=== PATIENT | female | born 1985 | race Caucasian/White ===

== ENCOUNTER 2020-01-25 13:23 | Outpatient (REF) | payer BC, SELFPAY ==
[2020-01-25 14:02] LABS: MANUAL DIFF FLAG NO
[2020-01-25 14:10] LABS: Basophils Absolute Auto 0.1 X10*3/uL (0.0-0.2); Basophils Percent Auto 1.1 % (0-2); Eosinophils Absolute Auto 0.2 X10*3/uL (0.0-0.4); Eosinophils Percent Auto 1.8 % (0-4); Hematocrit 39.5 % (37-47); Hemoglobin 12.5 g/dl (12.0-16.0); Imm Gran Abs Auto 0.02 X10*3/uL (0.00-0.03); Imm Gran Pct Auto 0.2 % (0.0-0.4); Lymphocytes Absolute Auto 2.3 X10*3/uL (1.2-4.9); Mean Corpuscular HGB Conc 31.6 g/dl (31.0-35.0); Mean Corpuscular Hemoglobin 30.3 pg (27.0-33.0); Mean Corpuscular Volume 95.6 fL (80-98); Mean Platelet Volume 10.3 fL (9.4-12.3); Monocytes Absolute Auto 0.4 X10*3/uL (0.1-1.2); Neutrophils Absolute Auto 5.3 X10*3/uL (2.0-8.3); Neutrophils Percent Auto 63.9 % (45-73); Platelet Count 326 X10*3/uL (160-400); Red Blood Count 4.13 X10*6/uL (4.20-5.50); White Blood Count 8.3 X10*3/uL (4.8-10.8)
[2020-01-25 14:40] LABS: Albumin Level 4.4 g/dL (3.5-5.0); Anion Gap 13 (12-20); Aspartate Amino Transferase 9 U/L (5-31); Bilirubin Total 0.3 mg/dL (0.0-1.0); Blood Urea Nitrogen 13 mg/dL (9-16); Calcium 9.4 mg/dL (8.4-10.2); Carbon Dioxide 24 mmol/L (22-29); Chloride 106 mmol/L (96-108); Cholesterol 245 mg/dL; Estimated Glomerular Filt Rate > 60; Glucose Fasting 85 mg/dL (60-99); HDL Cholesterol 84 mg/dL; LDL Cholesterol Calculated 142 mg/dl; Potassium 4.1 mmol/l (3.3-5.1); Sodium 139 mmol/L (135-145); Total Protein 7.3 g/dL (6.5-8.0); Triglycerides 99 mg/dL
[2020-01-25 15:04] LABS: Thyroid Stimulating Hormone 3.23 mIU/mL (0.32-4.0); Vitamin D 25-OH Total 29.7 ng/mL (>30)
[2020-01-25 15:10] LABS: Folate 17.2 ng/mL (> or = 4.0); Vitamin B12 537 pg/mL (200-900)
[2020-01-25 15:35] LABS: T4 Thyroxine 10.8 ug/dL (4.5-12.0)
[2020-01-25 18:35] LABS: Alanine Aminotransferase 15 U/L (0-31); Alkaline Phosphatase 74 U/L (39-117); Bilirubin Direct < 0.2 mg/dL (0.0-0.5)
== END 2020-01-25 13:24 | disposition home or self-care (01) ==
LOC: HO.LAB 13:23
PROVIDERS: PCP Internal Medicine; Visit Provider Internal Medicine
DX: C20 Malignant neoplasm of rectum (principal); E03.9 Hypothyroidism, unspecified; F41.8 Other specified anxiety disorders; F90.9 Attention-deficit hyperactivity disorder, unspecified type; Z79.899 Other long term (current) drug therapy
CPT/HCPCS: 36415; 80053; 80061; 80076; 82306; 82607; 82746; 84436; 84443; 85025

== ENCOUNTER 2021-10-26 12:36 | Outpatient (REF) | payer BC, SELFPAY ==
[2021-10-26 19:22] LABS: CT PCR NOT DETECTED (Not Detect.); NG PCR NOT DETECTED (Not Detect.)
[2021-10-27 09:49] LABS: BV Int Neg Control Negative (Negative); BV Int Pos Control Positive (Positive)
== END 2021-10-26 12:37 | disposition home or self-care (01) ==
LOC: HO.LAB 12:36
PROVIDERS: Visit Provider Advanced Practice Midwife
DX: Z11.3 Encounter for screening for infections with a predominantly sexual mode of transmission (principal); Z11.8 Encounter for screening for other infectious and parasitic diseases
CPT/HCPCS: 87480; 87491; 87510; 87591; 87660

== ENCOUNTER 2022-02-22 11:13 | Outpatient (REF) | payer BC, SELFPAY ==
[2022-02-22 13:41] LABS: MANUAL DIFF FLAG NO
[2022-02-22 13:43] LABS: Basophils Absolute Auto 0.1 X10*3/uL (0.0-0.2); Basophils Percent Auto 0.9 % (0-2); Eosinophils Absolute Auto 0.4 X10*3/uL (0.0-0.4); Eosinophils Percent Auto 5.1 % (0-4); Hematocrit 39.6 % (37.0-47.0); Hemoglobin 12.5 g/dl (12.0-16.0); Imm Gran Abs Auto 0.02 X10*3/uL (0.00-0.03); Imm Gran Pct Auto 0.2 % (0.0-0.4); Lymphocytes Absolute Auto 2.2 X10*3/uL (1.2-4.9); Lymphocytes Percent Auto 25.9 % (20-40); Mean Corpuscular HGB Conc 31.6 g/dl (31.0-35.0); Mean Corpuscular Hemoglobin 28.9 pg (27.0-33.0); Mean Corpuscular Volume 91.5 fL (80.0-98.0); Mean Platelet Volume 10.8 fL (9.4-12.3); Monocytes Absolute Auto 0.5 X10*3/uL (0.1-1.2); Monocytes Percent Auto 5.3 % (2-11); Neutrophils Absolute Auto 5.3 x10*3/uL (2.0-8.3); Neutrophils Percent Auto 62.6 % (45-73); Platelet Count 342 X10*3/uL (160-400); Red Blood Count 4.33 X10*6/uL (4.20-5.50); Red Cell Distribution Width 14.4 % (11.0-16.0); White Blood Count 8.5 X10*3/uL (4.8-10.8)
[2022-02-22 14:06] LABS: Alanine Aminotransferase 20 U/L (0-31); Albumin Level 4.3 g/dL (3.5-5.0); Alkaline Phosphatase 90 U/L (39-117); Anion Gap 15 (12-20); Aspartate Amino Transferase 15 U/L (5-31); Bilirubin Total 0.4 mg/dL (0.0-1.0); Blood Urea Nitrogen 11 mg/dL (9-16); Calcium 9.5 mg/dL (8.4-10.2); Carbon Dioxide 23 mmol/L (22-29); Chloride 107 mmol/L (96-108); Cholesterol 196 mg/dL; Estimated Glomerular Filt Rate > 60; Glucose Random 83 mg/dL (60-115); HDL Cholesterol 49 mg/dL; LDL Cholesterol Calculated 130 mg/dl; Potassium 4.6 mmol/L (3.3-5.1); Sodium 140 mmol/L (135-145); Triglycerides 88 mg/dL
[2022-02-22 14:15] LABS: Free T4 (Free Thyroxine) 0.85 ng/dL (0.71-1.85); Thyroid Stimulating Hormone 2.34 uIU/mL (0.32-4.0); Vitamin D 25-OH Total 15.6 ng/mL (>30)
[2022-02-22 14:25] LABS: Vitamin B12 403 pg/mL (200-900)
[2022-02-22 15:16] LABS: Folate 18.1 ng/mL (> or = 4.0)
== END 2022-02-22 11:14 | disposition home or self-care (01) ==
LOC: HO.10HDL 11:13
PROVIDERS: Visit Provider Internal Medicine
DX: E78.00 Pure hypercholesterolemia, unspecified (principal); E03.9 Hypothyroidism, unspecified
CPT/HCPCS: 36415; 80053; 80061; 82306; 82607; 82746; 84439; 84443; 85025

== ENCOUNTER 2022-10-04 13:44 | Outpatient (REF) | payer BC, SELFPAY ==
[2022-10-04 15:13] LABS: Free T4 (Free Thyroxine) 0.92 ng/dL (0.71-1.85); Thyroid Stimulating Hormone 3.23 uIU/mL (0.32-4.0)
== END 2022-10-04 13:45 | disposition home or self-care (01) ==
LOC: HO.LAB 13:44
PROVIDERS: Absent Provider Nurse Practitioner Family; PCP Internal Medicine; Visit Provider Internal Medicine
DX: E03.9 Hypothyroidism, unspecified (principal)
CPT/HCPCS: 36415; 84439; 84443

== ENCOUNTER 2023-03-11 10:59 | Outpatient (AMB) | payer BC, SELFPAY ==
--- NOTE | 2023-03-11 11:00 | MHC.PC.OV ---
Vital Signs 03/11/23 11:01 Height 5 ft 5 in Weight 249 lb 0.2 oz BMI 41.4 BP 112/86 Blood Pressure Location Lt brachial Position Sitting Pulse 87 Pulse Source Pulse Oximeter Pulse Oximetry (%) 96 Oxygen Delivery Method Room Air Intake Visit Reasons: Annual PE Intake Note: Patient is here today for a physical. Immunologist Required: No Allergies buckwheat Allergy (Unknown, Verified 03/11/23 11:11) Unknown Medication List - Last Reconciled 03/11/23 by Afia Heard MD [BERberine PO .QD] cholecalciferol (vitamin D3) 50 mcg PO DAILY clotrimazole 1% 1 appl topical BID 4 weeks dextroamphetamine-amphetamine 20 mg (Adderall) 20 mg PO BID levothyroxine 50 mcg PO QAM lorazepam (Ativan) 1 mg PO DAILY PRN multivitamin 1 tab PO DAILY quetiapine (Seroquel) 25 mg PO DAILY PRN trazodone 400 mg PO BEDTIME Tobacco use date assessed: 03/11/23 Dental Screening Dental Screen Date: 03/11/23 Did you have a dental visit in the last 12 months?: No Did you have a dental problem in the last 6 months where you did not have access to dental care?: No HPI Annual PE HPI Details 37-year-old obese female with a history of ADHD hypothyroidism and generalized anxiety disorder last seen in August 2022 patient is here for annual physical. [facility] Medical History (Updated 03/11/23 @ 12:00 by Afia Heard MD) Morbid obesity with BMI of 45.0-49.9, adult ADHD Generalized anxiety disorder Hypothyroidism Surgical History Nasal septal deviation Family History (Updated 03/11/23 @ 12:06 by Afia Heard MD) Mother No problems noted. Father Skin cancer Sister No problems noted. Brother No problems noted. Maternal Grandmother History of breast cancer Paternal Grandmother Colon cancer Skin cancer Paternal Aunt Skin cancer Paternal Uncle Skin cancer Social History Housing: House Alcohol intake: never Patient Tobacco Use Status: Former Tobacco user Tobacco use type: Cigarette e-Cigarette/Vaping Use: Never Used Second Hand Smoke Exposure: No Current occupational status: unemployed Sexual orientation: Straight/Heterosexual Gender identity: Female Cognitive needs: No Hearing needs: No Vision needs: No Questionnaire PHQ-9 Over the last 2 weeks, how often have you been bothered by any of the following problems? 1. Little interest or pleasure in doing things: not at all 2. Feeling down, depressed, or hopeless: not at all 3. Trouble falling or staying asleep, or sleeping too much: not at all 4. Feeling tired or having little energy: not at all 5. Poor appetite or overeating: not at all 6. Feeling bad about yourself - or that you are a failure or have let yourself or your family down: not at all 7. Trouble concentrating on things, such as reading the newspaper or watching television: not at all 8. Moving or speaking so slowly that other people could have noticed. Or the opposite - being so fidgety or restless that you have been moving around a lot more than usual: not at all 9. Thoughts that you would be better off or of hurting yourself in some way: not at all Total score: 0 Depression Screening Interpretation: Negative Depression Screening Done: Yes Source: Developed by Drs. Bebeto Reno, Melba Escobar, Prem Myles and colleagues, with an educational abebe from [employer]. Thrive Questionnaire Date Thrive assessed: 03/07/22 AUDIT C Alcohol Use Questionnaire (AUDIT-C) 1. How often do you have a drink containing alcohol?: Never 2. How many drinks containing alcohol do you have on a typical day when you are drinking?: 1 or 2 3. How often do you have six or more drinks on one occasion?: Never Total Score: 0 Score Reviewed/Action Taken: No BARB-7 AMB Questionnaire BARB-7 Date BARB - 7 assessed: 03/11/23 Feeling nervous, anxious, or on edge: 0 = Not at all Not being able to stop or control worryin = Not at all Worrying too much about different things: 0 = Not at all Trouble relaxin = Not at all Being so restless that it is hard to sit still: 0 = Not at all Becoming easily annoyed or irritable: 0 = Not at all Feeling afraid as if something awful might happen: 0 = Not at all Total BARB-7 score (0-4 normal; 5-9 mild; 10-14 moderate; 15-21 severe): 0 Source: Developed by Drs. Bebeto Reno, Melba Escobar, Prem Myles and colleagues, with an educational abebe from [employer]. Review of Systems Const Denies poor appetite and Denies weakness Eyes Denies no additional complaints ENT Reports Normal hearing present, Denies dizziness, Denies nasal congestion, Denies tinnitus and Denies sore throat Card Denies chest pain, Denies syncope, Denies rapid heart rate and Denies dyspnea Resp Denies cough and Denies dyspnea GI Denies change in stool character, Reports constipation, Denies diarrhea, Denies nausea and Denies vomiting Denies urinary frequency, Denies difficulty voiding and Denies dysuria Neuro Reports Normal hearing present, Denies confusion, Denies dizziness, Denies syncope and Denies weakness Psych Denies confusion Physical exam (Primary Care) Vital Signs: Last Vital Signs Pulse 87 03/11/23 11:01 BP 112/86 03/11/23 11:01 Pulse Ox 96 03/11/23 11:01 Oxygen Delivery Method Room Air 03/11/23 11:01 BMI result Body Mass Index 41.4 Tobacco/Smoking Status: Tobacco use Status Tobacco use date assessed 03/11/23 03/11/23 11:01 Patient Tobacco Use Status Former Tobacco user 03/11/23 11:01 Tobacco use type Cigarette 03/11/23 11:01 e-Cigarette/Vaping Use Never Used 03/11/23 11:01 PHQ-9: PHQ-9 Score PHQ-9: Total score 0 03/11/23 11:13 Depression Screening Interpretation: Negative Thrive Assessment: Date of Thrive Assessment Date Thrive assessed 03/07/22 03/11/23 11:01 Const General: alert and awake; No confusion Orientation/consciousness: No confusion HENMT Head: Yes normocephalic Ears: external ears normal and TM's normal bilaterally Face and sinus: Yes normal facial exam Mouth: moist mucous membranes Throat: Yes tonsils normal Eyes Conjunctivae: conjunctivae normal Pupils: Equal, round and reactive pupils present and Pupil accommodation reflex normal Direct Ophthalmoscopy: normal light reflex Neck Neck: No lymphadenopathy Thyroid: Thyroid normal Chest Chest palpation & inspection: normal inspection of the chest Resp Effort & Inspection: normal respiratory effort and no audible wheezes Auscultation: clear to auscultation bilaterally, no crackles, no wheezes and lung sounds not diminished Cardio Rate: regular rate Rhythm: regular rhythm Peripheral pulses: radial pulses present and dorsalis pedis present GI Palpation (GI): no masses Auscultation: normal bowel sounds and normoactive bowel sounds Rectal Exam - Female: deferred Skin General skin exam: no rashes or lesions noted Rashes: no rashes Neuro General: deep tendon reflexes 2+ bilaterally and No confusion Cranial nerves: Yes Equal, round and reactive pupils present, Yes Midline tongue present, Yes Normal hearing present and Yes Ability to bilaterally elevate shoulders present Cognition (Neuro): normal cognition Gait exam (Neuro): Normal gait present Motor exam (neuro): 5/5 motor strength present throughout Deep tendon reflexes (DTR's): Right brachioradialis reflex intensity grade: 2+, Left brachioradialis reflex intensity grade: 2+, Right patellar reflex intensity grade: 2+ and Left patellar reflex intensity grade: 2+ Extrem General: No edema Office Procedures Flu Questionnaire Does the patient have a severe egg allergy?: No Does the patient have severe life threatening allergies?: No Does the patient have a fever or illness today?: No Has the patient ever had Guillain-Houghton Syndrome?: No Has the patient ever had any past reaction to a flu shot?: No Immunizations flu vacc [id number] 6mos up(PF) 60 mcg(15 mcgx4)/0.5 mL IM syringe Performing Provider: Afia Heard MD Performing Location: [facility] Administered by: EREN Mott on 03/11/23 11:18 Dose Route Admin Location Dispensed Lot Number Expiration Date NDC [employer] 0.5 mL IM Left Deltoid 0.5 mL [id number] 10/20/23 [id number] [employer] VIS Given Date VIS Provided VIS Publication Date 03/11/23 Single Vaccine 20 Eligibility Eligibility Date Funding Source Not [facility] Eligible 03/11/23 Private Assessment and Plan Assessment & Plan (1) Annual physical exam: Code(s): Z00.00 - Encounter for general adult medical examination without abnormal findings (2) ADHD: Code(s): F90.9 - Attention-deficit hyperactivity disorder, unspecified type Plan: Continue with present medication and counseling (3) Hypothyroidism: Code(s): E03.9 - Hypothyroidism, unspecified Plan: Continue with thyroid medication requested blood work (4) Generalized anxiety disorder: Comment: PTSD, therapist Q weekand psychiatrist Dr. Neno ANN once a month Code(s): F41.1 - Generalized anxiety disorder Plan: Continue with counseling and therapy (5) Obesity: Code(s): E66.9 - Obesity, unspecified Plan: Diet and exercise noted weight loss. Orders: Orders Complete Blood Count Auto Diff Today E03.9 - Hypothyroidism, unspecified Comprehensive Met. Panel Today E03.9 - Hypothyroidism, unspecified Free T4 (Free Thyroxine) Today E03.9 - Hypothyroidism, unspecified Thyroid Stimulating Hormone Today E03.9 - Hypothyroidism, unspecified Lipid Panel Today E03.9 - Hypothyroidism, unspecified, E78.00 - Pure hypercholesterolemia, unspecified Vitamin B12 and Folate Today E03.9 - Hypothyroidism, unspecified Vitamin D 25-OH Total Today E03.9 - Hypothyroidism, unspecified Influenza [id number] Immunization Today Z23 - Encounter for immunization Coding Level of Care Code Est Pt Prev Care [id number]) Diagnoses Annual physical exam Z00.00 ADHD F90.9 Hypothyroidism E03.9 Generalized anxiety disorder F41.1 Obesity E66.9
[2023-03-11 11:01] VITALS: BP 112/86; PULSE 87; O2SAT 96; BMI 41.4
== END 2023-03-11 12:16 | disposition home or self-care (01) ==
PROVIDERS: Visit Provider Internal Medicine
DX: Z00.00 Encounter for general adult medical examination without abnormal findings (principal); E66.9 Obesity, unspecified; Z68.41 Body mass index [BMI] 40.0-44.9, adult; Z23 Encounter for immunization; F90.9 Attention-deficit hyperactivity disorder, unspecified type; E03.9 Hypothyroidism, unspecified; F41.1 Generalized anxiety disorder
CPT/HCPCS: 90471; 90686; 99395

== ENCOUNTER 2023-07-22 16:34 | Outpatient (REF) | payer BC, SELFPAY ==
[2023-07-22 16:52] LABS: MANUAL DIFF FLAG NO
[2023-07-22 17:59] LABS: Basophils Absolute Auto 0.1 X10*3/uL (0.0-0.2); Eosinophils Absolute Auto 0.2 X10*3/uL (0.0-0.4); Eosinophils Percent Auto 2.2 % (0-4); Hematocrit 41.8 % (37.0-47.0); Hemoglobin 13.5 g/dl (12.0-16.0); Imm Gran Abs Auto 0.01 X10*3/uL (0.00-0.03); Imm Gran Pct Auto 0.1 % (0.0-0.4); Lymphocytes Absolute Auto 2.2 X10*3/uL (1.2-4.9); Lymphocytes Percent Auto 25.3 % (20-40); Mean Corpuscular HGB Conc 32.3 g/dl (31.0-35.0); Mean Corpuscular Hemoglobin 29.1 pg (27.0-33.0); Mean Corpuscular Volume 90.1 fL (80.0-98.0); Mean Platelet Volume 10.5 fL (9.4-12.3); Monocytes Absolute Auto 0.5 X10*3/uL (0.1-1.2); Monocytes Percent Auto 5.3 % (2-11); Neutrophils Absolute Auto 5.8 x10*3/uL (2.0-8.3); Neutrophils Percent Auto 66.1 % (45-73); Platelet Count 370 X10*3/uL (160-400); Red Blood Count 4.64 X10*6/uL (4.20-5.50); Red Cell Distribution Width 14.4 % (11.0-16.0); White Blood Count 8.8 X10*3/uL (4.8-10.8)
[2023-07-22 18:12] LABS: Alanine Aminotransferase 17 U/L (0-31); Albumin Level 4.7 g/dL (3.5-5.0); Alkaline Phosphatase 86 U/L (39-117); Anion Gap 14 (12-20); Aspartate Amino Transferase 14 U/L (5-31); Bilirubin Total 0.3 mg/dL (0.0-1.0); Blood Urea Nitrogen 10 mg/dL (9-16); Calcium 10.2 mg/dL (8.4-10.2); Carbon Dioxide 23 mmol/L (22-29); Chloride 109 mmol/L (96-108); Cholesterol 193 mg/dL (<200); Estimated Glomerular Filt Rate > 60; Glucose Random 95 mg/dL (60-115); HDL Cholesterol 59 mg/dL (>40); LDL Cholesterol Calculated 117 mg/dL (<100); Potassium 4.5 mmol/L (3.3-5.1); Sodium 141 mmol/L (135-145); Triglycerides 89 mg/dL (<150)
[2023-07-22 18:28] LABS: Free T4 (Free Thyroxine) 1.01 ng/dL (0.71-1.85); Thyroid Stimulating Hormone 2.93 uIU/mL (0.32-4.0); Vitamin D 25-OH Total 36.6 ng/mL (>30)
[2023-07-22 18:47] LABS: Folate 13.5 ng/mL (> or = 4.0)
[2023-07-22 19:14] LABS: Vitamin B12 749 pg/mL (200-900)
== END 2023-07-22 16:35 | disposition home or self-care (01) ==
LOC: HO.LAB 16:34
PROVIDERS: PCP Internal Medicine; Visit Provider Internal Medicine
DX: E03.9 Hypothyroidism, unspecified (principal); E78.00 Pure hypercholesterolemia, unspecified
CPT/HCPCS: 36415; 80053; 80061; 82306; 82607; 82746; 84439; 84443; 85025

== ENCOUNTER 2023-09-11 11:06 | Outpatient (AMB) | payer BC, SELFPAY ==
[2023-09-11 11:08] VITALS: BP 138/80; PULSE 103; O2SAT 99; BMI 40.9
--- NOTE | 2023-09-11 11:08 | MHC.PC.OV ---
Vital Signs 09/11/23 11:08 Height 5 ft 5 in Weight 246 lb BMI 40.9 BP 138/80 Blood Pressure Location Lt brachial Position Sitting Pulse 103 H Pulse Source Pulse Oximeter Pulse Oximetry (%) 99 Oxygen Delivery Method Room Air Intake Visit Reasons: 6 Month F/U Allergies buckwheat Allergy (Unknown, Verified 09/11/23 11:09) Unknown Medication List - Last Reconciled 09/11/23 by Afia Heard MD [BERberine PO .QD] cholecalciferol (vitamin D3) 50 mcg PO DAILY clotrimazole 1% 1 appl topical BID 4 weeks dextroamphetamine-amphetamine 20 mg (Adderall) 20 mg PO BID levothyroxine 50 mcg PO QAM lorazepam (Ativan) 1 mg PO DAILY PRN methocarbamol 750 mg PO Q8H multivitamin 1 tab PO DAILY quetiapine (Seroquel) 25 mg PO DAILY PRN trazodone 400 mg PO BEDTIME Tobacco use date assessed: 09/11/23 Dental Screening Dental Screen Date: 09/11/23 Did you have a dental visit in the last 12 months?: No Did you have a dental problem in the last 6 months where you did not have access to dental care?: No Was dental information given to patient?: No HPI 6 Month F/U HPI Details 38-year-old obese female with a history of ADHD hypothyroidism generalized anxiety disorder last seen in February 2023 for physical exam patient is here for follow-up. R shoulder pain after exercises and urgent center deny trauma rx muscle relaxant. complains also of R thumb numbness and so dicussed about CTS. Patient also noted a week of having right breast scaly rash and was concerned about it and asking for dermatology referral. [facility] Medical History Morbid obesity with BMI of 45.0-49.9, adult ADHD Generalized anxiety disorder Hypothyroidism Surgical History Nasal septal deviation Family History Mother No problems noted. Father Skin cancer Sister No problems noted. Brother No problems noted. Maternal Grandmother History of breast cancer Paternal Grandmother Colon cancer Skin cancer Paternal Aunt Skin cancer Paternal Uncle Skin cancer Social History (Reviewed 09/11/23 @ 11:16 by Sophia Maya [facility]) Housing: House Alcohol intake: never Patient Tobacco Use Status: Former Tobacco user Tobacco use type: Cigarette e-Cigarette/Vaping Use: Never Used Second Hand Smoke Exposure: No Current occupational status: unemployed Sexual orientation: Straight/Heterosexual Gender identity: Female Cognitive needs: No Hearing needs: No Vision needs: Yes Questionnaire PHQ-9 Over the last 2 weeks, how often have you been bothered by any of the following problems? 1. Little interest or pleasure in doing things: not at all 2. Feeling down, depressed, or hopeless: not at all 3. Trouble falling or staying asleep, or sleeping too much: not at all 4. Feeling tired or having little energy: not at all 5. Poor appetite or overeating: not at all 6. Feeling bad about yourself - or that you are a failure or have let yourself or your family down: not at all 7. Trouble concentrating on things, such as reading the newspaper or watching television: not at all 8. Moving or speaking so slowly that other people could have noticed. Or the opposite - being so fidgety or restless that you have been moving around a lot more than usual: not at all 9. Thoughts that you would be better off or of hurting yourself in some way: not at all Total score: 0 Depression Screening Interpretation: Negative Depression Screening Done: Yes Source: Developed by Drs. Bebeto Reno, Melba Escobar, Prem Myles and colleagues, with an educational abebe from [employer]. Thrive Questionnaire Date Thrive assessed: 09/11/23 I am a: Patient What is your living situation today?: I have a steady place to live Within the past 12 months, did the food you bought not last and you didn't have the money to get more?: Never true Within the past 12 months, did you worry whether your food would run out before you got money to buy more?: Never true Do you have trouble paying for medicines?: No Do you have trouble getting transportation to medical appointments?: No Do you have trouble paying your heating and electricity bill?: No Do you have trouble taking care of your child, family member or friend?: No Do you have trouble with day-to-day activities such as bathing, preparing meals, shopping, managing finances, etc.?: No Are you currently unemployed and looking for a job?: No Are you interested in more education?: No Currently or been in a relationship where the following occur: no concerns reported THRIVE Score: 0 AUDIT C Alcohol Use Questionnaire (AUDIT-C) 1. How often do you have a drink containing alcohol?: Never 2. How many drinks containing alcohol do you have on a typical day when you are drinking?: 1 or 2 3. How often do you have six or more drinks on one occasion?: Never Total Score: 0 Score Reviewed/Action Taken: No BARB-7 AMB Questionnaire BARB-7 Date BARB - 7 assessed: 09/11/23 Feeling nervous, anxious, or on edge: 0 = Not at all Not being able to stop or control worryin = Not at all Worrying too much about different things: 0 = Not at all Trouble relaxin = Not at all Being so restless that it is hard to sit still: 0 = Not at all Becoming easily annoyed or irritable: 0 = Not at all Feeling afraid as if something awful might happen: 0 = Not at all Total BARB-7 score (0-4 normal; 5-9 mild; 10-14 moderate; 15-21 severe): 0 Source: Developed by Drs. Bebeto Reno, Melba Escobar, Prem Myles and colleagues, with an educational abebe from [employer]. Physical exam (Primary Care) Vital Signs: Last Vital Signs Pulse 103 H 09/11/23 11:08 BP 138/80 09/11/23 11:08 Pulse Ox 99 09/11/23 11:08 Oxygen Delivery Method Room Air 09/11/23 11:08 BMI result Body Mass Index 40.9 Tobacco/Smoking Status: Tobacco use Status Tobacco use date assessed 09/11/23 09/11/23 11:10 Patient Tobacco Use Status Former Tobacco user 09/11/23 11:10 Tobacco use type Cigarette 09/11/23 11:10 e-Cigarette/Vaping Use Never Used 09/11/23 11:10 PHQ-9: PHQ-9 Score PHQ-9: Total score 0 09/11/23 11:10 Depression Screening Interpretation: Negative Thrive Assessment: Date of Thrive Assessment Date Thrive assessed 09/11/23 09/11/23 11:10 Currently or been in a relationship where the following occur: no concerns reported Const General: alert; No acute distress Eyes Conjunctivae: conjunctivae normal Resp Auscultation: clear to auscultation bilaterally Cardio Rate: regular rate Rhythm: regular rhythm GI Inspection: Yes normal to inspection Extrem General: Yes normal to inspection and No edema Assessment and Plan Assessment & Plan (1) Hypothyroidism: Code(s): E03.9 - Hypothyroidism, unspecified Plan: Continue with present thyroid does blood work Beulah is in the normal range (2) Generalized anxiety disorder: Comment: PTSD, therapist Q weekand psychiatrist Dr. Neno ANN once a month Code(s): F41.1 - Generalized anxiety disorder Plan: Continue with counseling and therapy (3) Obesity: Code(s): E66.9 - Obesity, unspecified Plan: Noted weight loss. Continue with diet and exercise (4) Cervical cancer screening: Comment: Patient states history of all normal Paps last Pap done at previous providers at age 33, next Pap due it age 37 Code(s): Z12.4 - Encounter for screening for malignant neoplasm of cervix Plan: Reminded about cervical cancer screening. (5) Numbness of right hand: Code(s): R20.0 - Anesthesia of skin Plan: advise to get R wrist brace to start and if not better - will have EMG, NCV (6) Shoulder pain, right: Code(s): M25.511 - Pain in right shoulder Plan: Physical therapy requested and refill on the muscle relaxant. Discussed about drowsiness side effect. (7) Eczema: Comment: 1 cm scaly rash with mild erythema on the right breast 12 o'clock position Code(s): L30.9 - Dermatitis, unspecified Plan: Discussed about steroid creams and referral to dermatology (8) Breast skin changes: Code(s): R23.4 - Changes in skin texture Plan: Concern about breast skin changes and a mammogram as well as an ultrasound requested Orders: Orders PT Evaluation and Treatment Today M25.511 - Pain in right shoulder MM diagnostic mammo BI Today R23.4 - Changes in skin texture US breast RT limited Today R23.4 - Changes in skin texture Referrals Dermatology Referral L30.9 - Dermatitis, unspecified Medications: New methocarbamol 750 mg PO Q8H 30 tabs 0RF Coding Level of Care Code Est Pt Level 4 (59823) Diagnoses Hypothyroidism E03.9 Generalized anxiety disorder F41.1 Obesity E66.9 Cervical cancer screening Z12.4 Numbness of right hand R20.0 Shoulder pain, right M25.511 Eczema L30.9 Breast skin changes R23.4
== END 2023-09-11 12:09 | disposition home or self-care (01) ==
PROVIDERS: PCP Internal Medicine; Visit Provider Internal Medicine
DX: E03.9 Hypothyroidism, unspecified (principal); F41.1 Generalized anxiety disorder; R20.0 Anesthesia of skin; M25.511 Pain in right shoulder; L30.9 Dermatitis, unspecified; R23.4 Changes in skin texture
CPT/HCPCS: 99214

== ENCOUNTER 2023-10-01 13:22 | Outpatient (REF) | payer BC, SELFPAY ==
--- NOTE | ~2023-10-01 | MM_ITS ---
EXAMINATION: MM DIAGNOSTIC DIGITAL BREAST TOMOSYNTHESIS, BILATERAL US BREAST LIMITED, BILATERAL MAMMOGRAPHY: CLINICAL INFORMATION: 38-year-old female. Skin eczema right breast upper outer quadrant middle one third. No history of surgery. No family history of breast CA. Baseline exam. COMPARISON: Mammography: None. Baseline exam. TECHNIQUE: Digital breast tomosynthesis is performed in both the craniocaudal and mediolateral oblique views along with computer-aided detection (CAD). Synthesized 2D images are generated from the tomosynthesis. In addition to standard views, full-field 2-D right lateral exaggerated cc view was obtained, as well as 3-D spot compression views right breast CC x1, left breast CC x2, right breast MLO, and left breast MLO. This was followed by targeted bilateral breast ultrasound. FINDINGS: The breasts are heterogeneously dense, which may obscure small masses (ACR BI-RADS breast composition Category c). In the upper outer quadrant of the right breast is a large lobular mass with high density measuring approximately 8.4 x 6.0 x 6.2 cm. This has superior lobular margins, approximately 60% circumscribed inferior margins, with a questionable thin capsule surrounding the mass, and there are areas of fat attenuation marginally within. This suggests this mass may be a hamartoma but will be evaluated with ultrasound. There is heterogeneously dense nodular parenchyma bilaterally. Spot compression views of the left breast including the lateral and medial asymmetries demonstrate no definite persistent mass, only islands of heterogeneously dense nodular parenchyma. No suspicious calcifications. There are punctate symmetric bilateral very fine regional calcifications in the upper outer quadrants of both breasts. These are benign. ULTRASOUND: CLINICAL INFORMATION: Evaluate large mass right breast upper outer quadrant, and focal asymmetry in the 10:00 axis left breast. COMPARISON: None TECHNIQUE: Targeted sonographic evaluation bilateral breasts was performed using a high frequency linear transducer. Attention given to the large mass in the 10:00 axis of the right breast, the right axilla, and the left breast spanning the 1:00 to 5:00 axis. Selected archived documentation. FINDINGS: Measurements RIGHT BREAST: In the 10:00 axis there is a large heterogeneously markedly hypoechoic lobular mass with mixed increased and decreased echogenicity contained within, lobulated contours, no significant color Doppler flow internally, and posterior acoustic shadowing. This is grossly slightly wider than tall. Measurements are similar to the above measuring 8.4 x 6.0 x 6.2 cm. This is suggestive of a hamartoma, however remains indeterminate and ultrasound-guided biopsy is recommended. LEFT BREAST: There is a mixture of dense and extremely dense fibroglandular tissue present, somewhat which shadows, especially in the region of the 10:00 axis. No discrete mass, architectural abnormality. No cystic abnormalities. No suspicious findings. MM/MM tomosynthesis diagnostic BI IMPRESSION: -Large mass upper outer quadrant right breast as described, indeterminate. This may represent a hamartoma. Recommend ultrasound-guided biopsy. -Areas of heterogeneously dense and extremely dense fibroglandular tissue left breast without discrete mass or other abnormality. Recommend six-month follow-up left mammography and sonography to ensure stability. OVERALL ASSESSMENT: Mammography: BI-RADS 4 - Suspicious finding Ultrasound: BI-RADS 4 - Suspicious finding RECOMMENDATION: Biopsy recommended
== END 2023-10-01 13:23 | disposition home or self-care (01) ==
LOC: HO.MAMMO 13:22
PROVIDERS: PCP Internal Medicine; Visit Provider Internal Medicine
DX: R23.4 Changes in skin texture (principal); N64.89 Other specified disorders of breast
CPT/HCPCS: 76642; 77062; 77066

== ENCOUNTER → 2023-10-01 13:30 | Outpatient (BNV) | payer BC, SELFPAY | PROVIDERS: PCP Internal Medicine; Visit Provider Radiology Diagnostic Radiology | DX: N63.11 Unspecified lump in the right breast, upper outer quadrant (principal) | CPT/HCPCS: 76642; 77062; 77066 ==

== ENCOUNTER 2023-10-02 08:17 | Outpatient (AMB) | payer BC, SELFPAY ==
--- NOTE | 2023-10-02 08:19 | A.OFFVIS_ITS ---
Vital Signs 10/02/23 08:20 Height 5 ft 5 in Weight 245 lb BMI 40.8 BP 125/67 Blood Pressure Location Rt brachial Position Sitting Pulse 106 H Intake Visit Reasons: Right breast US BX Intake Note: This patient presents for a breast consult for right breast Ultrasound guided biopsy for upper outer quadrant density. Pt c/o; reports occasional right breast pain. 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 She apparently had a mammogram and US yesterday and [facility]. She denies any palpable breast mass. She says that that was her 1st screening mammogram ever. Her menarche was at the age of 14. She has never been . She still has her periods. She says that her maternal grandmother had breast cancer but her 70s. She admits to anxiety and depression and is on medications. [facility] Medical History Breast mass, right Morbid obesity with BMI of 45.0-49.9, adult ADHD Generalized anxiety disorder Hypothyroidism Surgical History Nasal septal deviation Family History Mother No problems noted. Father Skin cancer Sister No problems noted. Brother No problems noted. Maternal Grandmother History of breast cancer Paternal Grandmother Colon cancer Skin cancer Paternal Aunt Skin cancer Paternal Uncle Skin cancer Social History Housing: House Alcohol intake: never Patient Tobacco Use Status: Former Tobacco user Tobacco use type: Cigarette e-Cigarette/Vaping Use: Never Used Second Hand Smoke Exposure: No Current occupational status: unemployed Sexual orientation: Straight/Heterosexual Gender identity: Female Cognitive needs: No Hearing needs: No Vision needs: Yes Female Reproductive History Menstrual Age of Menarche: 15 Review of Systems Const Denies chills and Denies fever(s) Card Denies chest pain, Denies dyspnea and Denies dyspnea on exertion Resp Denies cough, Denies dyspnea and Denies dyspnea on exertion GI Denies hematochezia and Denies change in bowel habits Denies hematuria Musc Denies back pain and Denies limited range of motion Neuro Denies focal weakness and Denies convulsions Psych Denies depression and Denies mood swings Physical Exam Vital Signs: Last Vital Signs Pulse 106 H 10/02/23 08:20 BP 125/67 10/02/23 08:20 BMI result Body Mass Index 40.8 Const Other: Using powered air purifier respirator for COVID precautions General: comfortable and no acute distress Orientation/consciousness: patient oriented x3 Neck Neck: Yes no lymphadenopathy Chest Other: Has large pendulous breasts, no palpable breast mass, no nipple or skin changes, no axillary lymphadenopathy Resp Auscultation: clear to auscultation bilaterally Cardio Rhythm: regular rhythm GI Palpation (GI): Soft to palpation, nontender and no guarding Neuro General: patient oriented x3 Assessment & Plan Assessment & Plan (1) Breast mass, right: Code(s): N63.10 - Unspecified lump in the right breast, unspecified quadrant Category: Medical Plan: She had a mammogram and ultrasound done yesterday showing a right breast mass on ultrasound biopsy was recommended. No official report is noted on the chart I will order for this ultrasound biopsy. I will see her again next week to discuss the path report. [facility] and ultrasound. Orders: Orders US breast ndl core biopsy RT Today N63.10 - Unspecified lump in the right breast, unspecified quadrant Coding Level of Care Code New Pt Level 3 (36547) Diagnoses Breast mass, right N63.10
[2023-10-02 08:20] VITALS: BP 125/67; PULSE 106; BMI 40.8
== END 2023-10-02 08:49 | disposition home or self-care (01) ==
PROVIDERS: PCP Internal Medicine; Visit Provider Surgery
DX: N63.10 Unspecified lump in the right breast, unspecified quadrant (principal)
CPT/HCPCS: 99203

== ENCOUNTER → 2023-10-02 08:17 | Outpatient (BNVA) | payer BC, SELFPAY | PROVIDERS: PCP Internal Medicine; Visit Provider Surgery | DX: N63.10 Unspecified lump in the right breast, unspecified quadrant (principal) ==

== ENCOUNTER 2023-10-03 09:54 | Outpatient (REF) | payer BC, SELFPAY ==
--- NOTE | ~2023-10-03 | MM_ITS ---
PROCEDURE: US GUIDED BREAST BIOPSY, RIGHT CLINICAL INFORMATION: Large mass 9:00 axis posterior right breast, question hamartoma, for biopsy. COMPARISON: Prior day mammography and diagnostic ultrasound. PROCEDURAL DETAILS: The details of the procedure, as well as the risks, benefits, and alternatives to the procedure were explained to the patient in detail and all of her questions were answered, after which written informed consent was obtained. Site and side were confirmed. Prior to the procedure, sonography revealed the large heterogeneous intensely hypoechoic irregular mass with shadowing 9:00 axis right breast measuring 8.4 x 6.0 x 6.2 CM. A time-out was performed, the lesion intended for biopsy was targeted, and the skin of the overlying right breast was then marked, prepped and draped in the usual sterile fashion. Using sonographic guidance, sterile technique, and 1% lidocaine without epinephrine for local anesthesia, multiple core biopsies were obtained through the targeted area with a 14G spring loaded [employer] core biopsy device. There was real-time confirmation of appropriate needle passage. Sampling was documented. At the completion of tissue sampling, a single open coil-shaped metallic clip was deposited at the biopsy site. There was no evidence of immediate complication. SPECIMEN: 4 well formed core samples were obtained. DIGITAL POST-PROCEDURE MAMMOGRAPHY: Breast density: The tissue is heterogeneously dense which may obscure small masses. BI-RADS version 5, category C. There are no new mammographic findings demonstrated. The postprocedure 2-view direct digital mammogram reveals satisfactory and accurate positioning of the biopsy clip. No hematoma present. The patient tolerated the procedure well and, after assuring adequate hemostasis, was discharged in good condition after reviewing postbiopsy breast care instructions. Final pathology results are pending. MM/MM tomosynthesis diagnostic RT IMPRESSION: 1. No immediate complication from ultrasound-guided percutaneous biopsy right breast mass at posterior 3:00 axis, suspected hamartoma. 2. Ultrasound was used to localize and guide marker clip placement. 3. The 2-view direct digital postprocedure mammogram reveals satisfactory positioning of the biopsy clip. 4. Final pathology results are pending. A separate report with final recommendations will be issued once these results are made available.
[2023-10-03] MEDS: Sodium Bicarbonate 8.4% 50 MEQ/50 ML VIAL SUBCUT (11:15)
[2023-10-03] MEDS: Lidocaine HCl 1 % 20 ML VIAL 9 ML SUBCUT (11:15)
== END 2023-10-03 09:55 | disposition home or self-care (01) ==
LOC: HO.MAMMO 09:54
PROVIDERS: PCP Internal Medicine; Visit Provider Surgery
DX: N63.11 Unspecified lump in the right breast, upper outer quadrant (principal)
CPT/HCPCS: 19083; 77061; 77065; 88305; A4648; C1894

== ENCOUNTER → 2023-10-03 10:00 | Outpatient (BNV) | payer BC, SELFPAY | PROVIDERS: PCP Internal Medicine; Visit Provider Radiology Diagnostic Radiology | DX: N63.11 Unspecified lump in the right breast, upper outer quadrant (principal) | CPT/HCPCS: 19083; 77065 ==

== ENCOUNTER 2023-10-10 11:21 | Outpatient (AMB) | payer BC, SELFPAY ==
--- NOTE | 2023-10-10 11:30 | A.OFFVIS_ITS ---
Intake Visit Reasons: 1 week follow up Right breast US BX Intake Note: This patient presents for a follow-up assessment for breast biopsy results. Pt c/o; reports no complaints. 4 H Youth Development Specialist Required: No Accompanied by: Self / Same As Patient Allergies buckwheat Allergy (Unknown, Verified 10/10/23 11:31) Unknown HPI HPI 1 week follow up Right breast US BX: Details: She underwent ultrasound biopsy of the right breast last week. She is here to discuss her path report She describes a little bit of bruising on the area but otherwise denies any significant complaints. [facility] Medical History Breast mass, right Morbid obesity with BMI of 45.0-49.9, adult ADHD Generalized anxiety disorder Hypothyroidism Surgical History Nasal septal deviation Family History Mother No problems noted. Father Skin cancer Sister No problems noted. Brother No problems noted. Maternal Grandmother History of breast cancer Paternal Grandmother Colon cancer Skin cancer Paternal Aunt Skin cancer Paternal Uncle Skin cancer Social History Housing: House Alcohol intake: never Patient Tobacco Use Status: Former Tobacco user Tobacco use type: Cigarette e-Cigarette/Vaping Use: Never Used Second Hand Smoke Exposure: No Current occupational status: unemployed Sexual orientation: Straight/Heterosexual Gender identity: Female Cognitive needs: No Hearing needs: No Vision needs: Yes Female Reproductive History Menstrual Age of Menarche: 15 Review of Systems Const Denies chills and Denies fever(s) Card Denies chest pain, Denies dyspnea and Denies dyspnea on exertion Resp Denies cough, Denies dyspnea and Denies dyspnea on exertion GI Denies hematochezia and Denies change in bowel habits Denies hematuria Musc Denies back pain and Denies limited range of motion Neuro Denies focal weakness and Denies convulsions Psych Denies depression and Denies mood swings Physical Exam Const Other: Using powered air purifier respirator General: comfortable and no acute distress Chest Other: Mild ecchymosis around biopsy site, no hematoma Resp Effort & Inspection: normal respiratory effort Cardio Rate: regular rate Assessment & Plan Assessment & Plan (1) Breast mass, right: Code(s): N63.10 - Unspecified lump in the right breast, unspecified quadrant Category: Medical Plan: Status post ultrasound biopsy. Her path report shows benign stromal fibrosis. There was no evidence of any malignant process She understands the benign nature of the path report. I did remind her that she is to continue with regular screening mammograms. She says she is supposed to have a short follow-up for her left breast with a repeat mammogram in 6 months. Coding Level of Care Code Est Pt Level 2 (44997) Diagnoses Breast mass, right N63.10
== END 2023-10-10 12:05 | disposition home or self-care (01) ==
PROVIDERS: PCP Internal Medicine; Visit Provider Surgery
DX: N63.10 Unspecified lump in the right breast, unspecified quadrant (principal)
CPT/HCPCS: 99212

== ENCOUNTER → 2023-10-10 11:21 | Outpatient (BNVA) | payer BC, SELFPAY | PROVIDERS: PCP Internal Medicine; Visit Provider Surgery | DX: N63.10 Unspecified lump in the right breast, unspecified quadrant (principal) ==

== ENCOUNTER 2024-04-27 12:29 | Outpatient (REF) | payer BC, SELFPAY | END 2024-04-27 12:30 | disposition home or self-care (01) | LOC: HO.MAMMO 12:29 | PROVIDERS: PCP Internal Medicine; Visit Provider Internal Medicine | DX: Z13.89 Encounter for screening for other disorder (principal) ==

== ENCOUNTER 2024-04-30 11:55 | Outpatient (REF) | payer BC, SELFPAY ==
[2024-04-30 12:35] LABS: Hematocrit 39.4 % (37.0-47.0); Hemoglobin 12.7 g/dl (12.0-16.0); Mean Corpuscular HGB Conc 32.2 g/dl (31.0-35.0); Mean Corpuscular Hemoglobin 29.8 pg (27.0-33.0); Mean Corpuscular Volume 92.5 fL (80.0-98.0); Mean Platelet Volume 10.9 fL (9.4-12.3); Platelet Count 314 X10*3/uL (160-400); Red Blood Count 4.26 X10*6/uL (4.20-5.50); Red Cell Distribution Width 13.9 % (11.0-16.0); White Blood Count 9.1 X10*3/uL (4.8-10.8)
[2024-04-30 14:02] LABS: Alanine Aminotransferase 18 U/L (0-31); Albumin Level 4.3 g/dL (3.5-5.0); Alkaline Phosphatase 71 U/L (39-117); Anion Gap 10 (12-20); Aspartate Amino Transferase 21 U/L (5-31); Bilirubin Total 0.3 mg/dL (0.0-1.0); Blood Urea Nitrogen 17 mg/dL (9-16); Calcium 9.7 mg/dL (8.4-10.2); Carbon Dioxide 25 mmol/L (22-29); Chloride 108 mmol/L (96-108); Cholesterol 198 mg/dL (<200); Estimated Glomerular Filt Rate > 60; Glucose Random 90 mg/dL (60-115); HDL Cholesterol 54 mg/dL (>40); LDL Cholesterol Calculated 122 mg/dL (<100); Potassium 4.1 mmol/L (3.3-5.1); Sodium 139 mmol/L (135-145); Total Protein 7.4 g/dL (6.5-8.0); Triglycerides 114 mg/dL (<150)
[2024-04-30 14:04] LABS: Thyroid Stimulating Hormone 4.35 uIU/mL (0.32-4.0)
== END 2024-04-30 11:56 | disposition home or self-care (01) ==
LOC: HO.LAB 11:55
PROVIDERS: PCP Internal Medicine; Visit Provider Internal Medicine
DX: Z00.00 Encounter for general adult medical examination without abnormal findings (principal); E03.9 Hypothyroidism, unspecified
CPT/HCPCS: 36415; 80053; 80061; 84443; 85027

== ENCOUNTER 2024-06-09 11:32 | Outpatient (REF) | payer BC, SELFPAY ==
--- NOTE | ~2024-06-09 | US_ITS ---
EXAMINATION: MM DIAGNOSTIC DIGITAL BREAST TOMOSYNTHESIS, BILATERAL Limited left breast ultrasound. CLINICAL INFORMATION: Patient has upper outer quadrant right breast mass recently biopsied with benign pathology and marker clip in situ six-month follow-up was recommended. Asymmetries and focal asymmetries in the left breast without sonographic correlate for recommended for 6 month follow-up. COMPARISON: Mammography: Comparison is made with relevant prior exams. TECHNIQUE: Digital breast mammography with tomosynthesis is performed in both the craniocaudal and mediolateral oblique views along with computer-aided detection (CAD). Limited left breast ultrasound. FINDINGS: The breasts are heterogeneously dense, which may obscure small masses (ACR BI-RADS breast composition Category c). Right: 8 cm solid oval mass in the upper outer quadrant with a marker clip internally with benign pathology slightly more prominent from prior could be due to imaging technique. No suspicious calcifications or other abnormal findings. Left: Multiple scattered focal asymmetries in asymmetries are not significant change from prior. Upper outer breast posterior depth retroareolar region posterior depth and medial breast posterior depth without prior study for correlates. No suspicious calcifications or other abnormal findings. Targeted color Doppler ultrasound scanning in the retroareolar region and 6:00 from 4 8:00 and from 11-1 o'clock demonstrates normal fibroglandular breast tissue. There is no sonographic abnormality. Results are provided to the patient at time of visit by the technologist. US/US breast LT limited mamm only IMPRESSION: Right: Solid mass in the upper outer quadrant previously seen with benign pathology is minimally prominent from prior without significant increase in could be due to imaging technique. Recommend 6 month follow-up for further evaluation of stability. Left: Scattered focal asymmetries in asymmetries without prior sonographic correlates. Not significantly changed from prior. Recommend six-month follow-up mammography for further evaluation of stability. ASSESSMENT: BI-RADS BI-RADS 3 - Probably benign finding(s) - 6 month follow-up suggested RECOMMENDATION: 6 Month F/U This patient's information was entered into a reminder system with a target due date for their next mammogram. Electronically signed by: Jessica Haq DO 06/09/2024 02:13 PM [facility]
== END 2024-06-09 11:33 | disposition home or self-care (01) ==
LOC: HO.MAMMO 11:32
PROVIDERS: PCP Internal Medicine; Visit Provider Internal Medicine
DX: N63.11 Unspecified lump in the right breast, upper outer quadrant (principal); N64.89 Other specified disorders of breast
CPT/HCPCS: 76642; 77062; 77066

== ENCOUNTER → 2024-06-09 11:45 | Outpatient (BNV) | payer BC, SELFPAY | PROVIDERS: PCP Internal Medicine; Visit Provider Internal Medicine | DX: N63.11 Unspecified lump in the right breast, upper outer quadrant (principal) | CPT/HCPCS: 76642; 77062; 77066 ==